=== PATIENT | male | born 1990 | race Caucasian/White ===

== ENCOUNTER → 2017-06-10 | Emergency (ER) | payer BC, MEDICAID ==
[~2017-06-10] VITALS: Ht 170.2 cm; Wt 81.0 kg
[~2017-06-10] MED LIST: IBUP-1542 PO; ONDA4TAB35 PO; TRAM50TA2 PO
[2017-06-10 01:54] VITALS: Ht 170.2 cm; Wt 81.0 kg
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
== END | disposition home or self-care (01) ==
LOC: FTE 01:51
DX: S80.12XA Contusion of left lower leg, initial encounter (principal); V28.4XXA Motorcycle driver injured in noncollision transport accident in traffic accident, initial encounter
CPT/HCPCS: 73590; Z7502